=== PATIENT | male | born 1965 | race Native Hawaiian/Other Pacific Islander ===

== ENCOUNTER 2021-04-30 11:01 | Observation (INO) | payer BC ==
[2021-04-30] VITALS (7 sets, daily range): BP systolic 134–153; BP diastolic 72–91; TEMP 98.1–98.5; Ht 180.3 cm; Wt 103.4 kg
[~2021-04-30] VITALS: Ht 180.3 cm; Wt 103.4 kg
[2021-04-30 11:33] LABS: PLATELET COUNT 116 K/uL (142-355)
[2021-04-30 11:38] LABS: SODIUM 135 mmol/L (136-145)
[2021-04-30 11:45] LABS: PARTIAL THROMBOPLASTIN TIME 22.7 SECONDS (24.5-33.6)
[2021-04-30] MEDS ORDERED: LACTSYP31 PO (20:08)
[2021-04-30] MEDS ORDERED: CARV6.25 PO (20:08)
[2021-04-30] MEDS ORDERED: FURO20TA67 PO (20:09)
[2021-05-01] VITALS: BP 110/62; TEMP 98.1
[2021-05-01 04:28] VITALS: BP 105/50; TEMP 97.9
[2021-05-01 08:00] VITALS: BP 101/68; TEMP 97.7
--- NOTE | 2021-05-01 10:14 | NUR ---
INFORMED DR. FOY OF PT BP 101/68 AND HR 73 THIS AM, DR FOY ORDERS TO DC METOPROLOL AND GIVE THE CARVEDILOL, NO FURTHER ORDERS GIVEN
--- NOTE | 2021-05-01 11:12 | NUR ---
DC INSTRUCTIONS GIVEN AND EXPLAINED TO PT, PT HAS F/U WITH DR. LEWIS TODAY AT 1215 IN [place], PT TO BEGIN TAKING PROTONIX 40MG PO DAILY AND CONTINUE TAKING HOME MEDICATIONS PRESCRIBED, IV REMOVED WITH CATHETER INTACT, PT DC VIA AMBULATION TO PERSONAL VEHICLE, NAD NOTED
--- NOTE | 2021-05-01 13:27 | NUR ---
Patient discharged prior to discharge planning.
--- NOTE | 2021-05-01 14:07 | NUR ---
CALLED IN PROTONIX 40MG PO DAILY #30 WITH 5 REFILLS TO [facility] IN [place]
== END 2021-05-01 17:30 | disposition home or self-care (01) ==
LOC: ED 11:01 → MED/SURG 12:15
PROVIDERS: Hospitalist; ADMIT Internal Medicine Endocrinology, Diabetes & Metabolism; ATTEND Internal Medicine Endocrinology, Diabetes & Metabolism
DX: R07.89 Other chest pain (principal); K75.81 Nonalcoholic steatohepatitis (NASH); E11.9 Type 2 diabetes mellitus without complications; I10 Essential (primary) hypertension; E66.8 Other obesity; M13.88 Other specified arthritis, other site; R06.02 Shortness of breath
CPT/HCPCS: 80053; 82550; 83880; 84484; 85027; 85610; 85730; 87635; 93005; 99220; 99284; G0378; J1650; U0003